=== PATIENT | male | born 1990 | race Caucasian/White ===

== ENCOUNTER 2017-10-19 14:30 | Emergency (ER) ==
[2017-10-19 14:40] VITALS: BP 134/98; TEMP 96.8; BMI 20.3
[2017-10-19] MEDS: MORPHINE 2 MG/ML SYRINGE IM STA (15:16)
[2017-10-19] MEDS: ZOFRAN 4 MG/2 ML IM STA (15:17)
--- NOTE | 2017-10-19 15:36 | CT ---
EXAM: CT of the head without contrast. HISTORY: Trauma. COMPARISON: 04/14/2016. TECHNIQUE: Noncontrast CT of the head. FINDINGS: No intracranial hemorrhage or mass effect is identified. The sulci and ventricles are normal in size and configuration. No martin white matter differentiation loss is seen. The calvarium is intact. There is subcutaneous gas of the left side of the face. There is left orbit al gas. A left maxillary sinus air-fluid level is seen. The paranasal sinuses/facial bone are not com pletely imaged in this exam. IMPRESSION: No evidence of an acute intracranial process. Left facial and orbital subcutaneous gas. Left maxillary sinus air-fluid level. Please see facial bon e CT report for facial findings.
--- NOTE | 2017-10-19 15:38 | CT ---
EXAM: CT of the thoracic spine without contrast. HISTORY: Trauma. COMPARISON: None. TECHNIQUE: Contiguous axial images were obtained through the thoracic spine at 3 mm intervals. Sagi ttal and coronal reformats were reviewed. No contrast. FINDINGS: The vertebral heights are well maintained. There are no acute or healing fractures. Ther e are no lytic or blastic lesions. There is no spinal canal or neural foraminal narrowing. The lung windows are clear. The heart size is within normal limits. The visualized portion of the ribs are n ormal. IMPRESSION: Normal CT of the thoracic spine. No acute abnormalities.
--- NOTE | 2017-10-19 15:42 | CT ---
EXAM: CT of the orbits without contrast. HISTORY: Trauma. COMPARISON: None. TECHNIQUE: Contiguous axial images were obtained through the facial bones and orbits. Sagittal and coronal reformats reviewed. No contrast. FINDINGS: There is extensive subcutaneous emphysema as well as intraorbital gas on the left. There is a fracture of the inferior floor of the left orbit with herniation of orbital fat into the left ma xillary sinus and air in the left orbit. The gas extends into to the eyelid as well as in the subcut aneous soft tissues. No other definite fractures are identified. There is no fluid level in the max illary sinus. Nasal bones are intact. The zygomatic arches, pterygoid plates and mandibles are also intact. Mastoid air cells are well-aerated. The nasal septum is midline. IMPRESSION: 1. Left orbital floor blowout fracture. There is herniation of orbital fat without definite involve ment of the extraocular muscles. Correlate with physical exam. 2. Extensive gas in the septate soft tissues of the left orbit, hydrated and subcutaneous soft tissu es. This extends from the left maxillary sinus. 3. Air-fluid level in the left maxillary sinus.
--- NOTE | 2017-10-19 15:44 | CT ---
EXAM: Noncontrast CT of the cervical spine HISTORY: Trauma COMPARISON: 04/14/2016 TECHNIQUE: Noncontrast CT of the cervical spine FINDINGS: There are mild artifacts at the C7-T2 levels. The cervical vertebral bodies are normal in height. No cervical spine fractures or listhesis is seen. No significant intervertebral disc height loss is id entified. No abnormal prevertebral soft tissue swelling is seen. There is a small disc osteophyte co mplex at C6-7. IMPRESSION: No evidence of acute osseous injury to the cervical spine.
--- NOTE | 2017-10-19 16:01 | ED.PDOC ---
General ED Provider: Dr. ABRIL MAYS Chief Complaint: Multiple Trauma Stated Complaint: FACIAL INJURY Time Seen by Physician: 14:30 (NECK AND LEFT ORBIT PAIN ) Mode of Arrival: Walk-In Information Source: Patient Exam Limitations: No limitations Nursing and Triage Documentation Reviewed and Agree: Yes Reviewed sepsis parameters & appropriate labs ordered?: Yes System Inflammatory Response Syndrome: Not Applicable Sepsis Protocol: For patient's 13 years and over: Temp is 96.8 and below OR 101 and greater Pulse >90 BPM Resp >20/minute Acutely Altered Mental Status Are patient's symptoms suggestive of a new infection, such as: -Pneumonia -Skin, Soft Tissue -Endocarditis -UTI -Bone, Joint Infection -Implantable Device -Acute Abdominal Infection -Wound Infection -Meningitis -Blood Stream Catheter Infection -Unknown Review of Systems - Review Of Systems Constitutional: Reports: No symptoms Eyes: Reports: Pain (NO ORBITAL NUMBNESS NO DIPLOPIA ) Ears, Nose, Mouth, Throat: Reports: No symptoms Respiratory: Reports: No symptoms Cardiac: Reports: No symptoms GI: Reports: No symptoms : Reports: No symptoms Musculoskeletal: Reports: No symptoms Skin: Reports: No symptoms Neurological: Reports: No symptoms Endocrine: Reports: No symptoms Hematologic/Lymphatic: Reports: No symptoms All Other Systems: Reviewed and Negative Past Medical History - Past Medical History Previously Healthy: Yes Endocrine: Reports: None Cardiovascular: Reports: None Respiratory: Reports: None Hematological: Reports: None Gastrointestinal: Reports: None Genitourinary: Reports: None Neuro/Psych: Reports: None Musculoskeletal: Reports: None Cancer: Reports: None - Surgical History General Surgical History: Reports: Unknown - Family History Family History: Reports: Unknown - Social History Smoking Status: Current every day smoker Hx Substance Use: No Alcohol Screening: Occasionally Physical Exam - Physical Exam Appearance: Well-appearing, No pain distress, Well-nourished Eyes: SHERRIE, EOMI (LEFT ORBIT MARKED EDEMA SUBCONJACTIVAL HEMORRAGE SEE PHOTOS ) ENT: Ears normal, Nose normal, Oropharynx normal Respiratory: Airway patent, Breath sounds clear, Breath sounds equal, Respirations nonlabored Cardiovascular: RRR, Pulses normal, No rub, No murmur GI/: Soft, Nontender, No masses, Bowel sounds normal, No Organomegaly Musculoskeletal: Normal strength, ROM intact, No edema, No calf tenderness Skin: Warm, Dry, Normal color Neurological: Sensation intact, Motor intact, Reflexes intact, Cranial nerves intact, Alert, Oriented Psychiatric: Affect appropriate, Mood appropriate Interpretation - Radiology Interpretation Radiology Interpretation By: Radiologist Radiology Results: Positive (LEFT ORBITAL FX WITH SOME FAT HERNIATION) Critical Care Note - Critical Care Note Total Time (mins): 0 Course - Course Orders, Labs, Meds: Orders Category Date Time Status Morphine Sulfate [Morphine 2 mg/ml Syringe] MEDS 10/19/17 14:57 Discontinued 4 mg IM ONCE STA Ondansetron HCl/Pf [Zofran 4 mg/2 ml] MEDS 10/19/17 14:57 Discontinued 4 mg IM ONCE STA CT CERVICAL SPINE W/O CONTRAST Stat RADS 10/19/17 14:[address] HEAD W/O CONTRAST Stat RADS 10/19/17 14:[address] IAC/ORBIT/P.FOSSA W/O CONTR Stat RADS 10/19/17 14:[address] THORACIC SPINE W/O CONTRAST Stat RADS 10/19/17 14:57 Completed Medications Discontinued Medications Generic Name Dose Route Start Last Admin Trade Name Freq PRN Reason Stop Dose Admin Morphine Sulfate 4 mg 10/19/17 14:57 10/19/17 15:16 Morphine 2 Mg/Ml Syringe IM 10/19/17 14:58 4 mg ONCE STA Administration Ondansetron HCl 4 mg 10/19/17 14:57 10/19/17 15:17 Zofran 4 Mg/2 Ml IM 10/19/17 14:58 4 mg ONCE STA Administration Vital Signs: Temp Pulse Resp BP Pulse Ox 10/19/17 14:31 96.8 F L 83 16 134/98 H 100 Departure - Departure Time of Disposition: 16:03 Disposition: HOME SELF-CARE Discharge Problem: Blow out fracture of orbit Qualifiers: Encounter type: initial encounter Fracture type: closed Qualified Code(s): S02.30XA - Fracture of orbital floor, unspecified side, initial encounter for closed fracture Instructions: Facial Fracture (ED) Condition: Good Pt referred to PMD for follow-up: Yes Additional Instructions: Please call your Family Physician as soon as possible to schedule a follow-up appointment.UNFORTUANETLY YOUR EYE SOCKET IS BROKEN. THIS INJURY MAY RENDER YOU WITH DOUBLE VISION I HAVE EXPLAINED TO YOU. DOUBLE VISION MEANS THAT THE SITUATION IS GETTING WORSE . YOU MUST SEE A FACIAL SURGEON VICKIE. FOR THE REPAIR OF THIS INJURY . Allergies/Adverse Reactions: Allergies No Known Allergies Allergy (Verified 10/19/17 14:35) Home Medications: Ambulatory Orders Hydrocodone/Acetaminophen [[place] 10-325 Tablet] 1 each PO Q8HR #20 tablet Disposition Discussed With: Patient
== END 2017-10-19 17:11 | disposition home or self-care (01) ==
LOC: ED 14:30
DX: S02.30XA Fracture of orbital floor, unspecified side, initial encounter for closed fracture (principal); M54.2 Cervicalgia; Y04.2XXA Assault by strike against or bumped into by another person, initial encounter; Y92.149 Unspecified place in prison as the place of occurrence of the external cause; F17.210 Nicotine dependence, cigarettes, uncomplicated
CPT/HCPCS: 96372; 99283